=== PATIENT | male | born 1970 | race Asian ===

== ENCOUNTER 2018-06-16 10:18 | Observation (INO) | payer OTHER ==
[~2018-06-16] VITALS: Ht 170.2 cm; Wt 66.2 kg
[2018-06-16 10:20] VITALS: BP 115/77
--- NOTE | 2018-06-16 10:24 | NUR ---
PATIENT AMBULATED TO BED 8 AT THIS TIME.
--- NOTE | 2018-06-16 10:30 | NUR ---
48y/m bib son with c/o intermittent chest pain, cough, sob, and orthopnea x 1 month, progressively getting worse. Patient referred over from tile sorter. Patient denies any sob or cp at this time. Skin is warm/dry/color apprioriate for ethnicity. hx--patient denies rx--patient denies
--- NOTE | 2018-06-16 10:30 | NUR ---
Patient being evaluated by at bedside.
--- NOTE | 2018-06-16 10:31 | NUR ---
rad at bedside
--- NOTE | 2018-06-16 10:35 | NUR ---
ekg being done
--- NOTE | 2018-06-16 10:40 | NUR ---
lab at bedside
[2018-06-16 10:52] LABS: BASOPHILS % (AUTO) 0.4 % (0.0-2.0); EOSINOPHILS # (AUTO) 0.1 K/uL (0-0.4); EOSINOPHILS % (AUTO) 1.6 % (0.0-4.0); HEMATOCRIT 47.1 % (36-52); HEMOGLOBIN 15.6 g/dL (12.0-18.0); LYMPHOCYTES % (AUTO) 27.7 % (20.5-51.1); MEAN CORPUSCULAR HEMOGLOBIN 31 pg (27-31); MEAN CORPUSCULAR HGB CONC 33 g/dL (33-37); MEAN CORPUSCULAR VOLUME 92.1 fL (80-94); MONOCYTES # (AUTO) 0.6 K/uL (0.8-1.0); MONOCYTES % (AUTO) 7.8 % (1.7-9.3); NEUTROPHILS # (AUTO) 4.6 K/uL (1.8-7.7); NEUTROPHILS % (AUTO) 62.5 % (42.2-75.2); PLATELET COUNT (AUTO) 239 K/uL (140-450); RED BLOOD CELL COUNT(AUTO) 5.12 MIL/uL (4.20-6.10); RED CELL DISTRIBUTION WIDTH 13.6 % (11.6-13.7); WHITE BLOOD COUNT (AUTO) 7.3 K/uL (4.8-10.8)
[2018-06-16 11:03] LABS: ANION GAP 6.9 (8-16); CARBON DIOXIDE 29.8 mmol/L (21-32); POTASSIUM 3.7 mmol/L (3.5-5.1)
[2018-06-16 11:08] LABS: TOTAL BILIRUBIN 0.7 mg/dL (0.0-1.0)
--- NOTE | 2018-06-16 12:14 | NUR ---
pt resting at this time with son at bedside, waiting on admit orders before taking pt to the floor
[2018-06-16] MEDS ORDERED: ONDANSETRON 4 MG/2 ML VIAL IVP PRN (12:20)
[2018-06-16] MEDS ORDERED: LORazepam 2 MG/ML VIAL IVP PRN (12:20)
[2018-06-16] MEDS ORDERED: ACETAMINOPHEN 325 MG TAB PO PRN (12:20)
[2018-06-16] MEDS ORDERED: MORPHINE SULFATE 2 MG/ML SYR IVP PRN (12:20)
--- NOTE | 2018-06-16 12:43 | NUR ---
Patient will be admitted to care of dr. fitzgerald. Admited to tele floor. Will go to room 119-b. Belongings list completed. Report to cristal bearden.
--- NOTE | 2018-06-16 12:50 | NUR ---
Pt admitted from ER via [facility], accompanied by da Lau. Report received from ER nurse Leida. Pt able to amb from gurney to bed with steady gait. Medical hx obtained from pt, with translation (english - bahamian) by da Lau; verbalized understanding & able to return demonstrate teachings. Pt states he is a heavy smoker, verbalized understanding of non-smoking policy. Will request nicotine patch from Dr Lutz. Left ac IV saline lock intact & asymptomatic. Call light within reach.
[2018-06-16 13:00] VITALS: BP 131/78
--- NOTE | 2018-06-16 14:18 | NUR ---
Dr Lutz at bedside assessing pt. Obtained nicotine patch verbal order from physician. Pt agree with plan of care.
[2018-06-16] MEDS ORDERED: NICOTINE TRANSD SYS 14 MG/24 HR PATCH TD SCH (14:30)
--- NOTE | 2018-06-16 15:10 | NUR ---
Pt left unit via wheelchair for CT scan, accompanied by radiological health specialist.
--- NOTE | 2018-06-16 15:30 | NUR ---
Pt back in bed in room 119B from radiology. Call light within reach.
[2018-06-16 16:00] VITALS: BP 104/58
[2018-06-16] MEDS ORDERED: PNEUMOCOCCAL VACCINE 23 MCG/0.5 ML VIAL IMVAC SCH (17:05)
[2018-06-16] MEDS ORDERED: INFLUENZA VIRUS VACCINE QUAD 0.5 ML SYR IMVAC PRN (17:05)
--- NOTE | 2018-06-16 19:30 | NUR ---
Report given to pm nurse Rosie.
--- NOTE | 2018-06-16 19:31 | NUR ---
RECEIVED REPORT FROM LUISANA CLARKE FOR CONTINUITY OF CARE. PT A/OX4 ON ROOM AIR, ALBANIAN SPEAKING. PT IS ABLE TO MAKE NEEDS KNOWN, ABLE TO FOLLOW COMMANDS. PT AMBULATES WITH STEADY GAIT AND SKIN IS INTACT. PT HAS A 20G IV TO LEFT AC, ASYMPTOMATIC AND INTACT. VITAL SIGNS WITHIN NORMAL LIMITS. PT STABLE, DENIES HAVING ANY PAIN, NO SIGNS OF DISTRESS NOTED AT THIS TIME. PT POSITIONED FOR COMFORT. BED IN LOWEST POSITION, BED ALARM ON. WILL CONTINUE TO MONITOR.
--- NOTE | 2018-06-16 19:31 | NUR ---
PT ARRIVED VIA GURNEY ACCOMPANIED BY TRANSPORTERS. PT CAME FROM [facility]. RECEIVED REPORT FROM LUISANA MTZ, WHOM OBTAINED REPORT FROM LUISANA CALERO AT [facility]. PT A/OX4 ON ROOM AIR. PT IS ABLE TO MAKE NEEDS KNOWN, ABLE TO FOLLOW COMMANDS. PT IS ON BEDREST AND STATES THAT SHE HAS BEEN USING A WALKER TO AMBULATE WITH PT. PT HAS NO IV ACCESS. OBTAINED MRSA SWAB AND SENT TO LAB. VITAL SIGNS WITHIN NORMAL LIMITS. PT STABLE, DENIES HAVING ANY PAIN, NO SIGNS OF DISTRESS NOTED AT THIS TIME. PT POSITIONED FOR COMFORT. BED IN LOWEST POSITION, BED ALARM ON. WILL CONTINUE TO MONITOR. Addendum: 06/16/18 at 2002 by Rosie Monge RN WRONG PT. DISREGARD.
[2018-06-16 20:00] VITALS: BP 101/55
[2018-06-16 20:01] LABS: CREATINE KINASE MB 0.3 ng/mL (0-3.6)
[2018-06-16] MEDS: NAPROXEN 500 MG TAB PO SCH ×2 (21:00→21:01)
--- NOTE | 2018-06-16 21:38 | NUR ---
PT CALLED HIS SON TO TRANSLATE. PT REFUSED SCHEDULED MEDICATION.
[2018-06-17] VITALS: BP 99/57
--- NOTE | 2018-06-17 | NUR ---
VITAL SIGNS WITHIN NORMAL LIMITS. PT STABLE, DENIES HAVING ANY PAIN, NO SIGNS OF DISTRESS NOTED AT THIS TIME. PT POSITIONED FOR COMFORT. BED IN LOWEST POSITION, BED ALARM ON. WILL CONTINUE TO MONITOR.
--- NOTE | 2018-06-17 02:34 | NUR ---
ENDORSED PT TO LUISANA MENDES. Addendum: 06/17/18 at 0234 by Rosie Monge RN LUISANA SOLIMAN
--- NOTE | 2018-06-17 02:35 | NUR ---
ROUNDS MADE. PATIENT ASLEEP, EYES CLOSED, VISIBLE CHEST RISE AND FALL NOTED. NO SOB OR DISTRESS NOTED. WILL CONTINUE TO MONITOR.
--- NOTE | 2018-06-17 02:36 | NUR ---
RECEIVED ENDORSEMENT FROM LUISANA HUMPHREYS. PATIENT ASLEEP, EYES CLOSED, VISIBLE CHEST RISE AND FALL NOTED. NO S/SX OF SOB OR DISTRESS NOTED. BOARD UPDATED. WILL CONTINUE TO MONITOR.
[2018-06-17 03:28] LABS: BASOPHILS # (AUTO) 0.1 K/uL (0.00-0.22); BASOPHILS % (AUTO) 0.7 % (0.0-2.0); EOSINOPHILS # (AUTO) 0.2 K/uL (0-0.4); EOSINOPHILS % (AUTO) 2.1 % (0.0-4.0); HEMOGLOBIN 14.6 g/dL (12.0-18.0); LYMPHOCYTES # (AUTO) 3.1 K/uL (2.0-11.5); MEAN CORPUSCULAR HEMOGLOBIN 31 pg (27-31); MEAN CORPUSCULAR HGB CONC 33 g/dL (33-37); MEAN CORPUSCULAR VOLUME 92.4 fL (80-94); MONOCYTES # (AUTO) 0.6 K/uL (0.8-1.0); NEUTROPHILS % (AUTO) 50.2 % (42.2-75.2); PLATELET COUNT (AUTO) 233 K/uL (140-450); RED BLOOD CELL COUNT(AUTO) 4.76 MIL/uL (4.20-6.10); RED CELL DISTRIBUTION WIDTH 13.8 % (11.6-13.7); WHITE BLOOD COUNT (AUTO) 7.9 K/uL (4.8-10.8)
[2018-06-17 03:49] LABS: ANION GAP 4.2 (8-16); CARBON DIOXIDE 29.1 mmol/L (21-32); POTASSIUM 3.3 mmol/L (3.5-5.1)
[2018-06-17 04:00] VITALS: BP 109/65
--- NOTE | 2018-06-17 04:12 | NUR ---
VITALS TAKEN, NO SOB OR DISTRESS NOTED. WILL CONTINUE TO MONITOR.
[2018-06-17 04:24] LABS: CREATINE KINASE MB 0.2 ng/mL (0-3.6)
--- NOTE | 2018-06-17 07:13 | NUR ---
ENDORSED PATIENT TO AM SHIFT RN. PATIENT IN STABLE CONDITION.
--- NOTE | 2018-06-17 07:15 | NUR ---
RECEIVED PT REPORT AT BEDSIDE FROM SENIOR PAYROLL MANAGER NURSE. PT IS ASLEEP AT THIS TIME, NO S/S OF ACUTE DISTRESS OR SOB NOTED. PT IS ON ROOM AIR, SKIN IS INTACT. PT IS ARMENIAN SPEAKING ONLY. IV SITE NOTED ON THE LAC, 20 G, SALINE LOCKED. CALL LIGHT IS WITHIN REACH. WILL CONT TO MONITOR PT.
[2018-06-17 08:00] VITALS: BP 101/63
--- NOTE | 2018-06-17 08:15 | NUR ---
PATIENT HAS BEEN SCREENED AND CATEGORIZED MODERATE NUTRITION RISK. PATIENT WILL BE SEEN WITHIN 3-5 DAYS OF ADMISSION. 06/19/18[address]
[2018-06-17] MEDS ORDERED: ENOXAPARIN 40 MG/0.4 ML SYR SUBQ SCH (09:00)
[2018-06-17] MEDS ORDERED: NICOTINE TRANSD SYS 14 MG/24 HR PATCH TD SCH (09:00)
[2018-06-17] MEDS: NAPROXEN 500 MG TAB PO SCH (10:04)
--- NOTE | 2018-06-17 10:20 | NUR ---
AM MEDS ADMINISTERED. FAMILY VISITING PT AT BEDSIDE. NO S/S OF DISTRESS OR SOB. NO C/O PAIN. WILL CONTINUE TO MONITOR.
[2018-06-17 11:40] VITALS: BP 109/65
--- NOTE | 2018-06-17 11:51 | NUR ---
PAGED DR SHEPPARD REGARDING PT'S POTASSIUM 3.3 AWAITING CALL BACK
[2018-06-17] MEDS ORDERED: NAPR220C12 PO (12:25)
[2018-06-17] MEDS ORDERED: FAMO-90 PO (12:27)
[2018-06-17] MEDS ORDERED: POTASSIUM CHLORIDE 10 MEQ TABER PO SCH (13:00)
--- NOTE | 2018-06-17 14:32 | NUR ---
FLU AND PNA VACCINES ADMINISTERED
--- NOTE | 2018-06-17 15:00 | NUR ---
PT HAS DISCHARGED. DISCHARGE INSTRUCTIONS GIVEN TO PT'S SON, HE VERBALIZED UNDERSTANDING OF INSTRUCTIONS AND SIGNED THE DISCHARGE DOCUMENTS. FLU AND PNA VACCINES WERE ADMINISTERED. IV SITE AND WRIST BANDS REMOVED. PT LEFT WITH ALL BELONGINGS IN STABLE CONDITION.
== END 2018-06-17 15:00 | disposition home or self-care (01) ==
LOC: MED 10:18 → MTU 12:19
PROVIDERS: ADMIT Hospitalist; ATTEND Hospitalist
DX: R07.89 Other chest pain (principal); K21.9 Gastro-esophageal reflux disease without esophagitis; R91.8 Other nonspecific abnormal finding of lung field; F17.210 Nicotine dependence, cigarettes, uncomplicated; Z23 Encounter for immunization
CPT/HCPCS: 36415; 71045; 71250; 80048; 80053; 82550; 82553; 83880; 84484; 85025; 87081; 87804; 90471; 90472; 90658; 90732; 93307; 96372; 99284; G0378; J1650; Q0092; 93005; 99285